=== PATIENT | female | born 1960 | race Caucasian/White ===

== ENCOUNTER 2020-01-22 06:54 | Emergency (ER) | payer BC ==
[~2020-01-22] VITALS: Ht 149.9 cm; Wt 75.7 kg
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
[2020-01-22] MEDS ORDERED: ACETAMINOPHEN ES 500 MG TABLET ONE (07:08)
--- NOTE | 2020-01-22 07:29 | NUR ---
LABS DRAWN AND SENT TO LAB
[2020-01-22] MEDS ORDERED: IV NS 0.9% 1,000 ML BAG IV ONE (07:30)
[2020-01-22] MEDS ORDERED: ACETAMINOPHEN ES 500 MG TABLET PO ONE (07:30)
--- NOTE | 2020-01-22 07:32 | NUR ---
PT SIGNED PREG WAIVER.
[2020-01-22 07:33] LABS: BASOPHILS # (AUTO) 0.1 /CMM (0.0-0.2); BASOPHILS % (AUTO) 0.8 % (0.0-2.0); EOSINOPHILS % (AUTO) 1.7 % (0.0-6.0); HEMATOCRIT 44 % (33-45); HEMOGLOBIN 14.9 g/dL (11.5-14.8); LYMPHOCYTES # (AUTO) 1.6 /CMM (0.8-4.8); LYMPHOCYTES % (AUTO) 20.5 % (20.0-44.0); MEAN CORPUSCULAR HGB CONC 34 g/dl (31.0-36.0); MEAN CORPUSCULAR VOLUME 91 fL (82-100); MONOCYTES # (AUTO) 0.4 /CMM (0.1-1.30); MONOCYTES % (AUTO) 4.8 % (2.0-12.0); NEUTROPHILS # (AUTO) 5.5 /CMM (1.8-8.9); NEUTROPHILS % (AUTO) 72.2 % (43.0-81.0); PLATELET COUNT (AUTO) 249 /CMM (150-450); RED BLOOD CELL COUNT(AUTO) 4.82 MIL/uL (4.0-5.2); WHITE BLOOD COUNT (AUTO) 7.6 K/uL (4.3-11.0)
--- NOTE | 2020-01-22 07:42 | NUR ---
EMT AT BEDSIDE FOR EKG
[2020-01-22 08:02] LABS: CALCIUM, SERUM 9.5 mg/dL (8.5-10.1); CARBON DIOXIDE 24 mmol/L (21-32); CHLORIDE 102 mmol/L (98-107); CREATININE 0.8 mg/dL (0.6-1.3); GLUCOSE 294 mg/dL (74-106); POTASSIUM 4.1 mmol/L (3.5-5.1); SODIUM SERUM 140 mmol/L (136-145); UREA NITROGEN, BLOOD 16 mg/dL (7-18)
[2020-01-22 08:08] LABS: ALANINE AMINOTRANSFERASE 303 U/L (12-78); ALBUMIN 3.6 g/dL (3.4-5.0); ALKALINE PHOSPHATASE 139 U/L (46-116); ASPARTATE AMINOTRANSFERASE 224 U/L (15-37); BILIRUBIN,DIRECT 0.1 mg/dL (0.0-0.2); BILIRUBIN,TOTAL 0.4 mg/dL (0.2-1.0); TOTAL PROTEIN, SERUM 7.8 g/dL (6.4-8.2)
[2020-01-22] MEDS ORDERED: IV NS 0.9% 0 ML IV ONE (08:46)
[2020-01-22] MEDS ORDERED: IOHEXOL-300 100 ML VIAL IV ONE ×2 (08:46→11:35)
[2020-01-22] MEDS ORDERED: CT SWABBABLE VALVE TRANS SET 1 EA INFUS.SET MC ONE ×2 (08:46→11:35)
--- NOTE | 2020-01-22 09:10 | NUR ---
PATIENT BACK FROM CT SCAN
--- NOTE | 2020-01-22 10:30 | NUR ---
CALLED [facility] TRANSFER LINE [phone] FAX [phone] [facility] [address] FAXING OVER FACE SHEET, CT, AND LABS.
--- NOTE | 2020-01-22 10:43 | NUR ---
[facility] CALLED, SPOKE WITH BRAXTON HESS,CT REPORT AND FACESHEET FAXED REQUESTED
--- NOTE | 2020-01-22 11:07 | NUR ---
CALL BACK FROM BRAX[facility] HESS, ACCEPTED BY DR SHULTZ,WANTS CT REPEATED WITH IV CONTRAST
[2020-01-22] MEDS ORDERED: diphenhydrAMINE HCL 50 MG/ML VIAL ONE (11:09)
--- NOTE | 2020-01-22 11:13 | NUR ---
PICKED UP BY JUNIE MATA VIA [facility] FOR CT SCAN
[2020-01-22] MEDS ORDERED: diphenhydrAMINE HCL 50 MG/ML VIAL IV ONE (11:30)
[2020-01-22] MEDS ORDERED: IV NS 0.9% 1,000 ML IV ONE (11:30)
[2020-01-22] MEDS ORDERED: IV NS 0.9% 250 ML IV ONE (11:35)
--- NOTE | 2020-01-22 12:07 | NUR ---
REPORT GIVEN TO BRAXTON HESS OF [facility].
[2020-01-22 12:10] VITALS: BP 151/93
--- NOTE | 2020-01-22 12:11 | NUR ---
PICKED UP BY [facility] [address] IN SATBLE CONDITION. PATIENT CHUY BE TRANSFERRED TO [facility] ED.
== END 2020-01-22 12:15 | disposition short-term general hospital (02) ==
LOC: ER 06:58
DX: S36.892A Contusion of other intra-abdominal organs, initial encounter (principal); V43.62XA Car passenger injured in collision with other type car in traffic accident, initial encounter; Y92.410 Unspecified street and highway as the place of occurrence of the external cause; S27.329A Contusion of lung, unspecified, initial encounter; S20.219A Contusion of unspecified front wall of thorax, initial encounter; S13.9XXA Sprain of joints and ligaments of unspecified parts of neck, initial encounter; S32.019A Unspecified fracture of first lumbar vertebra, initial encounter for closed fracture; R74.0 Nonspecific elevation of levels of transaminase and lactic acid dehydrogenase [LDH]; S37.002A Unspecified injury of left kidney, initial encounter; I10 Essential (primary) hypertension; E78.5 Hyperlipidemia, unspecified; E11.9 Type 2 diabetes mellitus without complications; Z91.013 Allergy to seafood; Z20.828 Contact with and (suspected) exposure to other viral communicable diseases; R94.31 Abnormal electrocardiogram [ECG] [EKG]
CPT/HCPCS: 36415; 71250; 71260; 74176; 74177; 80048; 80076; 84484; 85025; 85730; 87426; 93005; 96361; 96374; 99291; C9803; J1200; J7030; J7050; Q9967